=== PATIENT | female | born 1965 | race African-American/Black ===

== ENCOUNTER 2025-04-08 17:12 | Emergency (ER) | payer OTHER ==
[~2025-04-08] VITALS: Ht 165.1 cm; Wt 65.0 kg
[2025-04-08 17:19] VITALS: O2SAT 96
[2025-04-08] MEDS: SODIUM CHLORIDE 0.9% 1,000 ML IV ONE (18:15)
[2025-04-08 18:23] LABS: BASOPHILS % 0.8 % (0.0-2.0); EOSINOPHILS % 0.3 % (0.0-5.0); HEMATOCRIT. 39.5 % (36.0-48.0); HEMOGLOBIN. 13.2 g/dL (12.0-16.0); LYMPHOCYTES % 12.8 % (20.0-50.0); MEAN CORPUSCULAR HEMOGLOBIN 32.9 pg (28.0-32.0); MEAN CORPUSCULAR HGB CONC 33.4 g/dL (31.0-37.0); MEAN CORPUSCULAR VOLUME 98.4 fL (81.0-99.0); MONOCYTES % 9.3 % (2.0-8.0); NEUTROPHILS % 76.8 % (40.0-76.0); RED BLOOD CELL COUNT 4.01 mill/uL (4.2-5.4); RED CELL DISTRIBUTION WIDTH 14.7 % (11.6-14.6); WHITE BLOOD COUNT 5.5 x1000/uL (4.5-11.0)
[2025-04-08 18:34] LABS: CARBON DIOXIDE 26 mEq/L (21-32); CHLORIDE 112 mEq/L (98-107); SODIUM 149 mEq/L (136-145)
[2025-04-08 18:38] LABS: CREATININE 1.1 mg/dL (0.6-1.0); TROPONIN I HIGH SENSITIVITY 17 ng/L (3.0-34)
[2025-04-08 18:39] LABS: GLUCOSE 103 mg/dL (70-105); UREA NITROGEN BLOOD 18 mg/dL (9-23)
[2025-04-08 18:42] LABS: DIFFERENTIAL COMMENT 1
[2025-04-08 19:11] LABS: MEAN PLATELET VOLUME 8.7 fl (7.4-10.4); PLATELET 152 x1000/uL (130-400)
[2025-04-08 19:32] LABS: INR 1.1; PARTIAL THROMBOPLASTIN TIME 25.5 sec (23.4-31.0); PROTHROMBIN TIME 11.5 sec (9.6-11.0)
[2025-04-08] MEDS: ASPIRIN 325MG EC TABLET PO ONE (21:57)
[2025-04-08 22:52] VITALS: BP 135/87; PULSE 68; RESP 19; TEMP 37.1; O2SAT 96
== END 2025-04-08 23:00 | disposition short-term general hospital (02) ==
LOC: ER 17:12 → EDBEDREQ 18:00 → EDBEDREQTM 21:34 → ER 23:00
DX: R55 Syncope and collapse (principal); I48.91 Unspecified atrial fibrillation; I11.9 Hypertensive heart disease without heart failure
CPT/HCPCS: 99285; 96360; 71045; 80048; 83880; 85025; 85610; 85730; 84484; 36415; 93005; J7030; A6449